=== PATIENT | male | born 1985 | race African-American/Black ===

== ENCOUNTER 2017-07-22 12:35 | Outpatient (CLI) ==
[2013-07-03 21:46] VITALS: BMI 26.6
[2017-07-22 12:46] LABS: BILIRUBIN,URINE Negative (NEGATIVE); KETONES,URINE Negative (NEGATIVE); LEUKOCYTE ESTERASE ,URINE Negative (NEGATIVE); NITRITE,URINE Negative (NEGATIVE); PH,URINE 5.5 (5-9); PROTEIN,URINE Negative (NEGATIVE); URINE, BLOOD Trace-lysed (NEGATIVE)
[2017-07-22 12:51] LABS: ADD URINE MICROSCOPIC YES
== END 2017-07-22 12:36 | disposition home or self-care (01) ==
LOC: LAB 12:35
PROVIDERS: ATTEND Nurse Practitioner Family
DX: Z20.2 Contact with and (suspected) exposure to infections with a predominantly sexual mode of transmission (principal)
CPT/HCPCS: 81001; 87800